=== PATIENT | male | born 1950 | race Two or more races ===

== ENCOUNTER 2017-06-04 14:45 | Emergency (ER) | payer MEDICARE, MEDICAID ==
--- NOTE | 2017-06-04 15:12 | ED Physician Chart ---
ED Chief Complaint/HPI - Patient Information Date Seen:: 06/04/17 Time Seen:: 14:45 Chief Complaint:: Agitation History of Present Illness:: onset x one day of agitation, aggressive sexual behavior, and hostile actions; no report of SIs, trauma, H/As, neck pain, C/P, SOB, cough, Abd. Pain, A/N/V/D/C , fever, chills, or urinary s/s Allergies:: Allergies Allergy/AdvReac Type Severity Reaction Status Date / Time No Known Allergies Allergy Verified 06/04/17 15:02 Historian:: Patient, Other (Care Facility Staff Member) Review:: Nurse's Note Reviewed ED Review of Systems - Review of Systems General/Constitutional: No fever, No chills, No weight loss, No weakness, No diaphoresis, No edema, No loss of appetite Skin: No skin lesions, No rash, No bruising Head: No headache, No light-headedness Eyes: No loss of vision, No pain, No diplopia ENT: No earache, No nasal drainage, No sore throat, No tinnitus Neck: No neck pain, No swelling, No thyromegaly, No stiffness, No mass noted Cardio Vascular: No chest pain, No palpitations, No PND, No orthopnea, No edema Pulmonary: No SOB, No cough, No sputum, No wheezing GI: No nausea, No vomiting, No diarrhea, No pain, No melena, No hematochezia, No constipation, No hematemesis G/U: No dysuria, No frequency, No hematuria Musculoskeletal: No bone or joint pain, No back pain, No muscle pain Endocrine: Polyuria, Polydipsia Psychiatric: Prior psych history, Depression, No anxiety, No suicidal ideation, No homicidal ideation, No auditory hallucination, No visual hallucination Hematopoietic: No bruising, No lymphadenopathy Allergic/Immuno: No urticaria, No angioedema Neurological: No syncope, No focal symptoms, No weakness, No paresthesia, No headache, No seizure, No dizziness, No confusion, No vertigo ED Past Medical History - Past Medical History Obtainable: Yes Past Medical History: DM Family History: Diabetes Melitus, HTN Social History: Non Smoker, No Alcohol, No Drug Use, Single, Care Facility Surgical History: None Psychiatricy History: Depression, Bipolar, Dementia Medication: Reviewed Family Medical History - Family Member Mother History Unknown: Yes ED Physical Exam - Physical Examination General/Constitutional: Awake, Well-developed, well-nourished, Alert, No distress, GCS 15, Non-toxic appearing, Ambulatory Head: Atraumatic Eyes: Lids, conjuctiva normal, PERRL, EOMI Skin: Nl inspection, No rash, No skin lesions, No ecchymosis, Well hydrated, No lymphadenopathy ENMT: External ears, nose nl, TM canals nl, Nasal exam nl, Lips, teeth, gums nl , Oropharynx nl, Tonsils nl Neck: Nontender, Full ROM w/o pain, No JVD, No nuchal rigidity, No bruit, No mass, No stridor Respiratory: Nl effort/Exclusion, Clear to Auscultation, No Wheeze/Rhonchi/Rales Cardio Vascular: RRR, No murmur, gallop, rubs, NL S1 S2, Carotid/Femoral/Distal pulses equal bilaterally GI: No tenderness/rebounding/guarding, No organomegaly, No hernia, Normal BS's, Nondistended, No mass/bruits, No McBurney tenderness : No CVA tenderness Extremities: No tenderness or effusion, Full ROM, normal strength in all extremities, No edema, Normal digits & nails Neuro/Psych: Alert/oriented, DTR's symmetric, Normal sensory exam, Normal motor strength, Judgement/insight normal, Mood normal, Normal gait, No focal deficits Other Neuro/Psych comments:: Disoriented and confused; + Psychomotor Agitation; Mood/Affect: Labile; no SIs Misc: Normal back, No paraspinal tenderness ED Labs/Radiology/EKG Results - Lab Results Comments:: unremarkable - EKG Interpretations EKG Time:: 15:46 Rate & Rhythm: 81; NSR Comments:: non-specific st-t changes ED Septic Shock - . Is Septic Shock (SBP<90, OR Lactate>4 mmol\L) present?: No ED Reassessment (Disposition) - Reassessment Reassessment:: pt is aymptomatic upon discharge; PE: WNL; MSE: no SIs; Mood/Affect: Stable Reassessment Condition:: Improved - Diagnosis Diagnosis:: Agitation-Resolved; Anxiety Reaction - Aftercare/Follow up Instructions Aftercare/Follow-Up Instructions:: Counseled pt regarding lab results/diagnosis & need follow up, Refer to Discharge Instructions, Counseled pt & family regarding lab results/diagnosis & need follow up - Patient Disposition Discharge/Transfer:: [facility] Condition at Disposition:: Stable, Improved (RTER prn if existing s/s reoccur and/or get worse and/or any other new s/s occur; ACIs given for all above Dx; Refer to Psychiatrist/Edger Runner LISBET; F/U with PMD in one day or prn; RTER prn if concerned)
[2017-06-04 15:29] LABS: % BASOPHILS 0.4 % (0.0-2.0); % EOSINOPHILS 3.2 % (0.0-5.0); % LYMPHOCYTES 21.1 % (20.0-50.0); % MONOCYTES 3.3 % (2.0-10.0); EOSINOPHILE ABSOLUTE 0.3 Th/cmm (0.1-0.4); HEMATOCRIT 44.3 % (41.0-60); HEMOGLOBIN 14.7 gm/dL (12-16); MEAN CELL VOLUME 88.3 fl (80-99); MEAN CORPUSCULAR HEMOGLOBIN 29.2 pg (27.0-31.0); MEAN CORPUSCULAR HGB CONC 33.1 pg (28.0-36.0); MEAN PLATELET VOLUME 7.6 fl; MONOCYTE ABSOLUTE 0.3 Th/cmm (0.3-1.0); NEUTROPHILE ABSOLUTE 6.8 Th/cmm (1.8-8.0); PLATELET COUNT 295 Th/cmm (150-400); RED BLOOD COUNT 5.01 Mil/cmm (3.80-5.80); RED CELL DISTRIBUTION WIDTH 13.5 % (11.5-20.0); WHITE BLOOD COUNT 9.4 Th/cmm (4.8-10.8)
[2017-06-04 15:51] LABS: ALB/GLOB RATIO 1.4 (1.0-1.8); ALBUMIN 4.3 gm/dL (4.2-5.5); ALKALINE PHOSPHATASE 66 U/L (34-104); ANION GAP 9.8 (7.0-16.0); BILIRUBIN,TOTAL 0.4 mg/dL (0.3-1.0); BUN - UREA NITROGEN 25 mg/dL (7-25); CALCIUM SERUM 10.1 mg/dL (8.6-10.3); CARBON DIOXIDE 31.1 mEq/L (21.0-31.0); CHLORIDE 101 mEq/L (98-107); CHOLESTEROL 162 mg/dL (<200); CREATININE - SERUM 1.1 mg/dL (0.7-1.3); GFR AFRICAN-AMERICAN > 60.0 ml/min (>90); GFR NON AFRICAN-AMERICAN > 60.0 ml/min; GLUCOSE 210 mg/dL (70-105); HDL -HIGH DENSITY LIPOPROTEIN 41 mg/dL (23-92); POTASSIUM SERUM 3.9 mEq/L (3.5-5.1); SALICYLATES (ASPIRIN) < 25.0 mg/L (30.0-100.0); SGOT 13 U/L (13-39); SGPT/ALT 9 U/L (7-52); SODIUM SERUM 138 mEq/L (136-145); TOTAL PROTEIN,SERUM 7.3 gm/dL (6.0-8.3); TRIGLYCERIDES 408 mg/dL (<150)
[2017-06-05 06:47] LABS: ACETAMINOPHEN < 10.0 ug/mL (10.0-30.0)
[2017-06-05 11:34] LABS: A1C % 7.2 % (4.0-6.0)
== END 2017-06-04 19:01 ==
LOC: ER 14:45
DX: R45.1 Restlessness and agitation (principal); F41.9 Anxiety disorder, unspecified; E11.9 Type 2 diabetes mellitus without complications
CPT/HCPCS: 36415-UA; 80053-TC; 80061-TC; 80320-TC; 80329-TC; 83036-90; 84443-TC; 85025-TC; 86592-TC; 93005

== ENCOUNTER 2017-07-19 19:12 | Inpatient (IN) | payer MEDICARE, MEDICAID, OTHER ==
[2017-07-19 20:17] VITALS: BP 138/66
[2017-07-19] MEDS ORDERED: Maalox 30 mL Cup PO PRN (20:17)
[2017-07-19] MEDS ORDERED: Magnesium Hydroxide (MOM) 30 mL UDC PO PRN (20:17)
[2017-07-20] MEDS: Enoxaparin 40 mg/0.4 mL 0.4mL Syr SUBQ SCH (08:29)
[2017-07-20] MEDS: Multivitamin Tab PO SCH (08:29)
--- NOTE | 2017-07-21 00:33 | Psychosocial Evaluation ---
DATE OF SERVICE: 07/20/2017 PSYCHIATRIC PROGRESS NOTE IDENTIFYING DATA: The patient is a 66-year-old male admitted here on a voluntary basis in view of his psychosis. CHIEF COMPLAINT: "I do not know." HISTORY OF PRESENT ILLNESS: This patient is a 66-year-old admitted here for acute psychosis and chart is reviewed. The patient is interviewed. In the interview, the patient has not been able to provide much of information and the patient has been grossly demented and is not making much sense and the patient is getting easily frustrated when I am asking the questions. The patient's sleep and appetite prior to the hospitalization are reported to be poor. The patient is reported to have been sexually inappropriate with the staff and the patient has been sent out. [facility], where he was not able to care for self and hence has been returned to the medical facility from where he has been referred over here for further stabilization. PAST PSYCHIATRIC HISTORY: Details are not known. MEDICAL HISTORY: Physical examination is requested by Dr. Becerril. SUBSTANCE ABUSE HISTORY: None. PHYSICAL OR SEXUAL ABUSE HISTORY: None. LEGAL PROBLEMS: None at this time. STRENGTH AND ASSETS: . MENTAL STATUS EXAMINATION: The patient is a 66-year-old, looking his stated age, superficially cooperative. Eye contact is poor. Mood is irritable. Affect is constricted. Insight and judgment at this time are noted to be still impaired. Impulse control is noted to be poor. Coping skills are also noted to be very poor. The patient is not making much sense. The patient has both short and long-term memory deficits. The patient's behavior is noted to be grossly inappropriate. The patient has been eating the noneatable stuff that is the paper cup and then the creamer papers at the time of the hospitalization. The patient at this time is not able to contract for safety. 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 Attention span and concentration are noted to be poor. The patient is not able to participate in the groups. DIAGNOSTIC IMPRESSION: AXIS I A. Psychosis, not otherwise specified. B. Dementia and behavioral change, secondary trait. PLAN: To continue the patient with a low dose of the Zoloft and increase the patient to verbalize the concerns rather than to act out. JOB# [id number]
--- NOTE | 2017-07-21 02:42 | Consultation ---
DATE OF CONSULTATION: 07/20/2017 REFERRING PHYSICIAN: Michelle Cruz M.D. REASON FOR CONSULTATION: Medical management of diabetes and hypertension. HISTORY OF PRESENT ILLNESS: The patient is a 66-year-old male with history of dementia with behavioral disorder, type 2 diabetes, hypertension, overactive bladder disease, who apparently was recently arrested for sexual harassment of a female patient at the care facility where he lives. The patient was treated at a local hospital where pertinent findings included a CT of head without contrast showing volume loss and small vessel chronic ischemic disease. His hemoglobin A1c on 06/12/2017 was noted to be 7.3 and apparently he also has history of chronic renal insufficiency. The patient has been transferred to [facility] for further management and care. He is currently asleep, but arousable and denies any complaints. PAST MEDICAL HISTORY: As noted above and depression. PAST SURGICAL HISTORY: None listed. ALLERGIES: NKDA. OUTPATIENT MEDICATIONS: Tylenol 650 mg q. 6 p.r.n. for pain or fever, Aricept 10 mg every day, Lovenox 40 mg every day, lisinopril 10 mg b.i.d., Namenda 10 mg at bedtime, Glucophage 1000 mg b.i.d., and sertraline 12.5 mg every day. FAMILY HISTORY: Likely noncontributory to this admission. SOCIAL HISTORY: He states he has never smoked. He denies any alcohol or any illicit drug usage. He lives at a nursing care facility. REVIEW OF SYSTEMS: Not able to be done at this time given the patient's condition is somewhat uncooperative. PHYSICAL EXAMINATION: VITAL SIGNS: Temperature is 98.2, pulse 88, respirations 20, BP 138/66, satting 97% on room air. GENERAL: Well developed, well nourished, not in acute distress. HEAD AND NECK: Normocephalic, atraumatic. Pupils are reactive to light. CARDIOVASCULAR: Regular rate and rhythm without any murmurs. LUNGS: Decreased at the bases, but clear to auscultation. ABDOMEN: Soft, supple, nontender, nondistended with normoactive bowel sounds. EXTREMITIES: On lower extremities, no pedal edema. NEUROLOGIC: Grossly intact, nonfocal. ASSESSMENT: 1. Dementia with behavioral disorder with recent incarceration for sexual harassment. 2. Type 2 diabetes. 3. Hypertension. 4. History of overactive bladder disease/spasms per records. 5. Depression. PLAN: The patient has been admitted to [facility] for psychiatric supportive care and treatment. I will keep the patient on his hypertension and diabetic medications. I will ask for labs in the morning including a fasting lipid panel, TSH and a hemoglobin A1c as well as CBC and a CMP. JOB# [id number]
[2017-07-21] MEDS: Enoxaparin 40 mg/0.4 mL 0.4mL Syr SUBQ SCH (09:11)
[2017-07-21] MEDS: Multivitamin Tab PO SCH (09:13)
[2017-07-21 15:10] LABS: % BASOPHILS 0.4 % (0.0-2.0); % EOSINOPHILS 2.7 % (0.0-5.0); % MONOCYTES 7.2 % (2.0-10.0); % NEUTROPHILS 57.7 % (40.0-80.0); EOSINOPHILE ABSOLUTE 0.2 Th/cmm (0.1-0.4); HEMATOCRIT 43.8 % (41.0-60); HEMOGLOBIN 14.5 gm/dL (12-16); LYMPHOCYTE ABSOLUTE 2.1 Th/cmm (1.5-3.0); MEAN CELL VOLUME 90.4 fl (80-99); MEAN CORPUSCULAR HEMOGLOBIN 29.9 pg (27.0-31.0); MEAN CORPUSCULAR HGB CONC 33.1 pg (28.0-36.0); MEAN PLATELET VOLUME 8.4 fl; MONOCYTE ABSOLUTE 0.5 Th/cmm (0.3-1.0); NEUTROPHILE ABSOLUTE 3.9 Th/cmm (1.8-8.0); PLATELET COUNT 287 Th/cmm (150-400); RED BLOOD COUNT 4.84 Mil/cmm (3.80-5.80); RED CELL DISTRIBUTION WIDTH 13.1 % (11.5-20.0)
[2017-07-21 15:12] LABS: WHITE BLOOD COUNT 6.7 Th/cmm (4.8-10.8)
[2017-07-21 15:33] LABS: ALB/GLOB RATIO 1.5 (1.0-1.8); ALKALINE PHOSPHATASE 68 U/L (34-104); ANION GAP 9.3 (7.0-16.0); BILIRUBIN,TOTAL 0.4 mg/dL (0.3-1.0); BUN - UREA NITROGEN 28 mg/dL (7-25); CALCIUM SERUM 9.6 mg/dL (8.6-10.3); CARBON DIOXIDE 30.1 mEq/L (21.0-31.0); CHLORIDE 104 mEq/L (98-107); CREATININE - SERUM 1.2 mg/dL (0.7-1.3); GFR AFRICAN-AMERICAN > 60.0 ml/min (>90); GFR NON AFRICAN-AMERICAN > 60.0 ml/min; GLUCOSE 156 mg/dL (70-105); POTASSIUM SERUM 4.4 mEq/L (3.5-5.1); SGOT 13 U/L (13-39); SGPT/ALT 11 U/L (7-52); SODIUM SERUM 139 mEq/L (136-145); TOTAL PROTEIN,SERUM 6.7 gm/dL (6.0-8.3)
--- NOTE | 2017-07-21 18:43 | Progress Notes ---
DATE: 07/21/2017 PSYCHIATRIC PROGRESS NOTE Staff was spoken to. The patient is interviewed. Mood is noted to be dysphoric. Insight and judgment are noted to be still impaired, impulse control seems to be limited. The patient is feeling frustrated. The patient has been having difficult time to cope with the stress. Mood is noted to be still depressed. Coping skills are noted to be poor. The patient is getting easily confused. ASSESSMENT: The patient is still depressed and suicidal. PLAN: To continue the patient with the supportive therapy, I encouraged the patient to verbalize the concerns rather than to act out. JOB# [id number]
[2017-07-21 21:45] LABS: A1C % 7.7 % (4.0-6.0)
[2017-07-22] MEDS: Enoxaparin 40 mg/0.4 mL 0.4mL Syr SUBQ SCH (10:00)
[2017-07-22] MEDS: Multivitamin Tab PO SCH (10:00)
--- NOTE | 2017-07-22 23:21 | Progress Notes ---
DATE: 07/22/2017 SUBJECTIVE: Staff was spoken to. The patient is noted to be depressed. Affect is constricted. Coping skills are noted to be still poor. The patient is currently on sertraline and has been able to tolerate the medications. No side effects to the medications are noted at this time. The patient continues to be isolative and voices, feelings of helplessness and hopelessness. ASSESSMENT: The patient is still depressed. PLAN: To continue the Zoloft and followup. JOB# [id number]
[2017-07-23] MEDS: Multivitamin Tab PO SCH (08:56)
[2017-07-23] MEDS: Enoxaparin 40 mg/0.4 mL 0.4mL Syr SUBQ SCH (09:37)
--- NOTE | 2017-07-24 01:52 | Consultation ---
DATE OF CONSULTATION: 07/21/2017 TYPE OF CONSULTATION: Psychology. REQUESTING PHYSICIAN: Dr. Cruz. HISTORY OF PRESENT ILLNESS: The patient is a 66-year-old male, who is being admitted on a voluntary basis due to psychosis. The patient is not providing much information, so the following is mostly by review of the medical record. The patient is getting frustrated with the questions. According to record review, the patient had been sexually inappropriate with staff at his facility. The patient had been sent to alf and this event needs to be further evaluated and the information needs to be evaded. The patient was transferred from a medical facility here to the geropsychiatric unit for further stabilization. The patient currently is denying any suicidal ideation, plan, or intention. The patient is guarded and suspicious. PAST MEDICAL HISTORY: Please see history and physical by Dr. Becerril. PAST PSYCHIATRIC HISTORY: Details are not known by the patient and there are no details in the review of medical records. CURRENT MEDICATIONS: Please see medication reconciliation sheet. SUBSTANCE ABUSE HISTORY: The patient denied any. PSYCHOSOCIAL HISTORY: The patient did not answer questions about occupational or education history. 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 The patient lives at a [facility] facility. According to the patient, however, the patient's actual residence is not known to this fiction and nonfiction prose writer. The patient was not forthcoming about legal issues. MENTAL STATUS EXAMINATION: The patient appears to be his stated age. The patient's attitude is superficially cooperative. Eye contact is poor. Mood is irritable. Affect is constricted. Thought process seems to be concrete, but linear. The patient's behavior indicates poor compliance with treatment, but the patient is responding to staff and their redirection. Impulse control is fair to poor. Coping skills are poor. The patient is not making much sense. Sensorium is alert and oriented to person and place. The patient was unable to participate in the memory evaluation. Immediate memory and short term memory appeared to be impaired. Long-term memory needs further evaluation. The patient's behavior has been inappropriate according to record review. Staff reports the patient has been eating non-eatable items like a paper cup and creamer papers on the unit. The patient's insight is poor. Judgment is compromised. DIAGNOSTIC IMPRESSION: AXIS I: 1. Psychotic disorder, not otherwise specified. 2. Dementia with behavioral disturbance. AXIS II: Deferred. AXIS III: Please see history and physical by Dr. Becerril. PLAN: The patient has been seen and evaluated by psychiatrist, Dr. Cruz for management of the patient's psychotropic medications. We will provide de-escalation to assist the patient in being able to appropriately interact with staff and verbalize concerns versus acting out. We will provide anger management. We will provide coping strategies for phase of life issues. We will provide motivational enhancement for the patient to become compliant and stay compliant with all aspects of his care and treatment plan. Thank you Dr. Cruz for this consult and the opportunity to participate with you in this patient's care. JOB# [id number] SRAVANI
--- NOTE | 2017-07-24 02:41 | Progress Notes ---
DATE: 07/23/2017 PSYCHIATRIC PROGRESS NOTE SUBJECTIVE: Staff was spoken to. The patient is interviewed. Mood is noted to be anxious. Affect is constricted. The patient is still isolative and withdrawn. Insight and judgment to be still impaired. Impulse control seems to be limited. Coping skills are noted to be limited. The patient is not able to contract for safety yet. The patient is currently on Zoloft and has been able to tolerate the medications. No side effects to the medications are noted. ASSESSMENT: The patient is still depressed. PLAN: To continue the patient's current medications and followup. JOB# [id number]
[2017-07-24] MEDS: Enoxaparin 40 mg/0.4 mL 0.4mL Syr SUBQ SCH (08:52)
[2017-07-24] MEDS: Multivitamin Tab PO SCH (09:30)
--- NOTE | 2017-07-24 13:22 | Progress Notes ---
DATE: 07/24/2017 SUBJECTIVE: Staff was spoken to. The patient is interviewed. Mood is noted to be depressed. Affect is constricted. The patient is stating that whatever that he is taking has not been doing anything to him, he would like to have change of medication, and hence, it is decided to start the patient on Lexapro instead of the Zoloft. The patient is going to be provided with supportive therapy. The Lexapro is going to be started at 10 mg. The patient is going to be closely monitored. ASSESSMENT: The patient is still depressed. PLAN: To continue the patient with supportive therapy. Encourage the patient to verbalize the concerns rather than to act out. JOB# [id number]
[2017-07-25] MEDS: Multivitamin Tab PO SCH ×2 (08:54→09:08)
[2017-07-25] MEDS: Enoxaparin 40 mg/0.4 mL 0.4mL Syr SUBQ SCH ×2 (08:55→09:08)
--- NOTE | 2017-07-25 13:11 | Progress Notes ---
DATE: 07/25/2017 SUBJECTIVE: Staff was spoken to. The patient is interviewed. Mood is noted to be anxious and depressed. Affect is constricted. The patient's coping skills are noted to be poor. The patient is feeling frustrated for being in here. The patient has been placed on the Lexapro 10 mg for his depression. front end manager has been mentioning that they have sent paperwork to several different places to see if the patient can be accepted over there because of the patient's sexualized gestures. The patient's acceptance is becoming a major problem at this time. ASSESSMENT: The patient is still depressed. PLAN: To continue the patient with supportive therapy and follow up. JOB# [id number]
[2017-07-26] MEDS: Enoxaparin 40 mg/0.4 mL 0.4mL Syr SUBQ SCH (09:00)
[2017-07-26] MEDS: Multivitamin Tab PO SCH (10:19)
--- NOTE | 2017-07-26 15:24 | Progress Notes ---
DATE: 07/26/2017 SUBJECTIVE: Staff was spoken to. The patient's insight and judgment are very much impaired. Impulse control is noted to be improving. It has been becoming difficult to find a placement for this patient because none of the placements are willing to accept the patient because of his sexual gestures towards the staff members and also placement is evaluated at this time. The patient, however, has been able to tolerate the Lexapro. PLAN: Follow the patient with supportive therapy. JOB# [id number]
--- NOTE | 2017-08-25 13:10 | Discharge Summary ---
DATE OF DISCHARGE: 07/26/2017 IDENTIFYING DATA: The patient is a 66-year-old male admitted on a voluntary basis in view of his psychosis. CHIEF COMPLAINT: "I don't know." DIAGNOSES AT THE TIME OF ADMISSION: AXIS I: 1. Psychotic disorder, not otherwise specified. 2. Dementia and behavioral change, secondary trait. AXIS II: None. AXIS III: As per Dr. Becerril. HISTORY OF PRESENT ILLNESS: Please refer to the 07/20/2017 dictation done by me. Physical examination was done by Dr. Becerril and is noted to be significant for type 2 diabetes mellitus, hypertension, and history of overactive bladder. HOSPITAL COURSE AND RESPONSE TO TREATMENT: Blood work done with the time of the hospitalization has been reviewed by Dr. Becerril. The patient has been closely monitored on the inpatient unit, provided with supportive psychotherapy. The patient has been continued on the Aricept 10 mg daily. The patient also has been placed on the Lexapro 10 mg in the morning and the patient has been given the Namenda 10 mg twice a day. The patient has been taking care diabetes with metformin. With these medications, the patient has been observed and was encouraged to participate in the groups and verbalize the concerns. The patient's psychosis was not to that extent where the patient needs to be on antidepressant medication, but appeared to be more of a depression and the patient has been placed on his antidepressant medication and has been continued to closely monitor the patient's impulsive behavior started to resolve and no sexualized behavior is noted at the time of the discharge and patient was discharged to be followed up on an outpatient basis. The patient has been able to tolerate the Lexapro. MENTAL STATUS EXAMINATION: At the time of discharge, patient's mood appeared to be anxious. Affect is appropriate. Not suicidal or homicidal. Insight and judgment are fair. Impulse control is also noted to be fair. No side effects to the medications are noted. The patient has been able to verbalize the concerns rather than to act out at the time of his discharge. CONDITION: At the time of discharge noted to be stable. DIAGNOSES AT THE TIME OF DISCHARGE: AXIS I: 1. Depressive disorder, not otherwise specified. 2. Dementia and behavioral change, secondary trait. AXIS II: None. AXIS III: Diabetes mellitus. AFTERCARE PLAN: The patient is discharged to [facility] to be followed up on an outpatient basis. [facility]# [id number]
== END 2017-07-26 17:00 | DRG 885 ==
LOC: GERO 19:12
PROVIDERS: ADMIT Psychiatry & Neurology Psychiatry; ATTEND Psychiatry & Neurology Psychiatry
DX: F29 Unspecified psychosis not due to a substance or known physiological condition (principal); N18.9 Chronic kidney disease, unspecified; E11.22 Type 2 diabetes mellitus with diabetic chronic kidney disease; F03.91 Unspecified dementia, unspecified severity, with behavioral disturbance; I12.9 Hypertensive chronic kidney disease with stage 1 through stage 4 chronic kidney disease, or unspecified chronic kidney disease; F32.9 Major depressive disorder, single episode, unspecified; N32.81 Overactive bladder
CPT/HCPCS: 36415-UA; 80053-TC; 83036-90; 84443-TC; 85025-TC; J1650; Z7610